=== PATIENT | female | born 1965 ===

== ENCOUNTER 2016-07-10 06:03 | Day surgery (SDC) | payer OTHER ==
--- NOTE | 2016-07-09 19:35 | HP ---
AYSE LOPEZ [id number] HISTORY OF PRESENT ILLNESS: Ayse is a 51-year-old patient who presented to my clinic with complaints of pain in the ball of the left foot for the past several years off and on, getting worse over the past year. She says she cannot do her job without significant pain now on her feet after an hour or two. She has tried several different conservative treatments, including arch support, changes in shoe gear and therapy, with no relief of pain. PAST MEDICAL HISTORY: Significant for: 1. A heart murmur she was diagnosed with as a child. 2. Hypothyroidism. 3. Hypocholesterolemia. ALLERGIES: No known drug allergies. CURRENT MEDICATIONS: She takes: 1. Simvastatin. 2. Levothyroxine. 3. Ibuprofen. 4. A vitamin supplement. FAMILY HISTORY: Significant for diabetes. SOCIAL HISTORY: She states no alcohol or tobacco use. She is . PHYSICAL EXAMINATION: VITAL SIGNS: Blood pressure 128/88. Pulse 84 and regular. HEENT: Head is normocephalic. No scars or masses noted. Throat shows no masses. NECK: Shows no lymphadenopathy. LUNGS: Clear to auscultation in all vaca. HEART: Regular rate and rhythm. No murmurs or gallops. I am not able to appreciate the murmur she had as a child. ABDOMEN: Soft, nontender and nondistended. LOWER EXTREMITIES: Pedal pulses intact. Filling time of two seconds. Color of skin is pink. NEUROLOGIC: Gross sensation intact bilaterally. DERMATOLOGIC: Temperature, texture and turgor are within normal limits. There is positive hair growth at the digits. MUSCULOSKELETAL: She has about 5-10 degrees of dorsal motion and 5 degrees of plantar motion on the 1st MP joint. IMAGING: X-rays show a dorsal osteophyte and lipping of the hallux, with joint space narrowing, consistent with osteoarthritis hallux limitus of the joint. PLAN: We are scheduling her for a cheilectomy of the 1st MP joint on the left side. All risks and complications inherent to the procedure are gone over with the patient and she understands these. There are no contraindications in her medical history at this time. She is scheduled for this procedure [facility] on 07/10/2016, and will be followed at that time.
[~2016-07-10 06:03] MED LIST: CEFAZOLIN SODIUM 2 GRAM PREMIX 100 ML IV PRN; IV START KIT ONE; LACTATED RINGERS 1,000 ML ONE
[2016-07-10] MEDS ORDERED: MIDAZOLAM HCL 1 MG/ML 2ML VIAL ONE (06:13)
[2016-07-10] MEDS ORDERED: LIDOCAINE 1% (PRES FREE) 30 ML VIAL ONE (06:51)
[2016-07-10] MEDS ORDERED: BUPIVACAINE 0.5% (PRES FREE) 30 ML VIAL ONE (06:51)
[2016-07-10] MEDS ORDERED: PROPOFOL 40 ML IV ONE (07:25)
[2016-07-10] MEDS ORDERED: LIDOCAINE 2% (PRES FREE) 5 ML VIAL ONE (07:25)
[2016-07-10] MEDS ORDERED: HYDROMORPHONE HCL 1 MG/ML SYRINGE IV PRN (07:31)
[2016-07-10] MEDS ORDERED: ONDANSETRON 4 MG/2ML 2 ML VIAL IV PRN (07:31)
[2016-07-10] MEDS ORDERED: FENTANYL 100 MCG/2 ML VIAL IV PRN (07:31)
[2016-07-10] MEDS ORDERED: NALOXONE HCL 0.4 MG/ML VIAL IV PRN (07:31)
[2016-07-10] MEDS ORDERED: ATROPINE SULFATE 0.4 MG/1 ML VIAL IV PRN (07:31)
[2016-07-10] MEDS ORDERED: PROMETHAZINE HCL 25 MG/ML VIAL IM PRN (07:31)
[2016-07-10] MEDS ORDERED: LACTATED RINGERS 1,000 ML IV SCH (07:45)
[2016-07-10] MEDS ORDERED: OXYCODONE HCL 5 MG TABLET PO PRN (08:13)
[2016-07-10] MEDS ORDERED: ON-Q PUMP/ROPIVACAINE 0.2% 400 ML in PREMIX BAG 1 EACH NB SCH (08:15)
[2016-07-10] MEDS ORDERED: ON-Q PUMP/ROPIVACAINE 0.2% 450 ML ONE (08:18)
[2016-07-10 09:31] LABS: HEMATOCRIT 40.7 % (37.0-47.0); HEMOGLOBIN 13.4 gm/l (12.0-16.0)
--- NOTE | 2016-07-10 12:52 | OP ---
Marita Heaton DATE OF SURGERY: 07/10/2016 SURGEON: Red Isbell M.D. PREOPERATIVE DIAGNOSIS: Hallux rigidus osteoarthritis first metacarpophalangeal joint. POSTOPERATIVE DIAGNOSIS: Hallux rigidus osteoarthritis first metacarpophalangeal joint. PROCEDURE: Cheilectomy of the left first metatarsophalangeal joint. ANESTHESIA: MAC sedation with first grade block using 22 mL of 1% Lidocaine and 0.5% Marcaine in a 1:1 mix. HEMOSTASIS: Ankle tourniquet inflated to 250 mmHg for a total of 27 minutes left ankle. ESTIMATED BLOOD LOSS: Less than 10 mL. MATERIALS: 3-0 Vicryl, 3-0 Prolene, 1 On-Q pain pump. PROCEDURE: The patient was brought in the operating room and laid on the operating room table in the supine position. After she was adequately sedated we anesthetized the foot with the above stated anesthetic block. Prepped and draped the foot in the standard sterile fashion using Esmarch. We exsanguinated blood from the left foot and inflated the ankle tourniquet at this time. Attention was drawn to the dorsum of the left foot where a longitudinal incision was made over the medial aspect of the first metatarsophalangeal joint just medial to the EHL tendon. This incision was deepened into the epidermis and dermis. All superficial vessels were Bovie cautery. Using Metzenbaum scissors we deepened the incision through the subcutaneous tissue down to the joint capsule. Using sharp dissection we performed a dorsal capsulotomy reflecting the capsular tissue off the head of the first metatarsal and off the base of the proximal phalanx. Once we had adequate exposure to the head of the first metatarsal and base of the proximal phalanx using a sagittal saw we removed the dorsal osteophytes off the head of the first metatarsal and off the medial eminence. We then used the rongeur to rongeur the dorsal lip off the base of the proximal phalanx. After we had adequate bone removal we placed a Ashley scoop underneath the head of the first metatarsal and released the sesamoid apparatus. Once this was achieved we had 75 to 80 degrees dorsal motion, 25 to 30 degrees of plantar motion. There was some mild wear and tear on the lateral portion of the head of the first metatarsal in the articular cartilage, but the majority of the cartilage was left intact. Prior to this we took a bone tha and burred off all the base of the hallux smooth and round. We did the same with the head of the first metatarsal rounding off the head of the bone smooth and round. Once we had adequate removal of bone, we went ahead and irrigated the wound with saline and placed an On-Q pain pump into the wound. Once the pain pump was in position we went ahead and closed the joint capsule back together with 3-0 Vicryl in a running fashion. We then closed the superficial structures with 3-0 Vicryl in a simple interrupted fashion. Closed the skin with 3-0 Prolene in a horizontal mattress fashion. The wound was dressed with Xeroform gauze and dry sterile dressing. The patient tolerated the procedure well and left operating room for recovery with vital signs stable in no apparent distress. Follow up in my office in 72 hours for postoperative check. JOB: [id number]
== END 2016-07-10 09:27 | disposition home or self-care (01) ==
LOC: SDC 06:03
PROVIDERS: ATTEND Podiatrist
PROC: 0QBP0ZZ Excision of Left Metatarsal, Open Approach (ICD-10-PCS; principal; 2016-07-10)
DX: M20.22 Hallux rigidus, left foot (principal); E03.9 Hypothyroidism, unspecified
CPT/HCPCS: 85014; 85018; 28289; J2250; J2001; J7120; J2795 ×2; A4306